=== PATIENT | male | born 1935 | race Caucasian/White ===

== ENCOUNTER 2018-03-25 08:47 | Observation (INO) | payer OTHER, BC ==
--- NOTE | 2018-03-25 08:56 | CPEKG ---
Heart Rate: 51 RR Interval: 1176 P-R Interval: 192 QRSD Interval: 82 QT Interval: 472 QTC Interval: 435 P [place]: 81 QRS [place]: 12 T Wave [place]: 6 EKG Severity - OTHERWISE NORMAL ECG - EKG Impression: SINUS RHYTHM EKG Impression: LOW VOLTAGE IN FRONTAL LEADS Electronically Signed By: Shani Rey 25-Mar-2018 13:25:49
--- NOTE | 2018-03-25 09:04 | EDPHY ---
HPI/HX/ROS/PE/MDM Narrative: CHIEF COMPLAINT: Syncope, bradycardia. HISTORY OF PRESENT ILLNESS: This patient is an 82 year old male with history of Alzheimer's dementia arriving via EMS for evaluation of bradycardia following a syncopal event this morning. He does not remember the incident well, but thinks he may have been at breakfast. He does not recall any chest pain prior to passing out. He denies any pain in his head or neck. He felt well upon waking this morning. He had a syncopal event several years ago. He denies any new medications recently. Per nurse sumary of EMS report, the patient was at breakfast and became diaphoretic, then had a syncopal event. On EMS arrival, the patient's blood pressure was "low" and his pulse was "slow". He was reportedly bradycardic around 40bpm. EMS administered 600mL IV NS and IV Atropine in transport with improvement in patient's BP and HR. Currently, the patient has no complaints. He denies fever, chills, chest pain, shortness of breath, palpitations, vomiting , diarrhea, urinary complaints, headache. REVIEW OF SYSTEMS: Unobtainable secondary to patient's underlying memory issues. PAST MEDICAL HISTORY: Patient denies. Per records, history of Alzheimer's dementia. SOCIAL HISTORY: Lives at [facility]. Retired. Next of kin is his sister, who lives land surveying party chief in [place] and land surveying party chief in [place]. VITAL SIGNS: Reviewed by me GENERAL: Pleasant male, alert, no obvious distress. Unable to the provide meaningful information for the history or physical exam. HEENT: Atraumatic. Eyes: No icterus, no injection. Mouth: moist mucous membranes. No erythema or lesions. Neck: supple with no adenopathy. LUNGS: Clear to auscultation bilaterally, no wheezes, rhonchi or rales. CARDIAC: Regular rate and rhythm, no rubs, murmurs or gallops. ABDOMEN: Soft, nontender, nondistended, bowel sounds normal. BACK: No CVA tenderness. EXTREMITIES: No trauma. No edema. Range of motion is normal throughout. NEURO: Alert, grossly nonfocal. Patient states he is not sure where he lives and is not sure what year or season it is. It is unclear if this is baseline for him due to his history of Alzheimer's dementia. SKIN: Warm and dry, no rash. PSYCHIATRIC: Normal mentation, no agitation. Portions of this note were transcribed by a medical liaison. I personally performed a history, physical exam, medical decision making, and confirmed accuracy of information the transcribed note. ED Course: 82 y/o male presents following a syncopal event and reported hypotension and bradycardia. BP on arrival 130/75. HR 49. HPI limited due to patient's underlying memory deficits. Plan for EKG, chest x-ray, labs including CBC, chemistries, POC troponin. 08:54 12-LEAD EKG: Please see the full report in [facility]. My interpretation: Sinus rhythm, rate 51. Reviewed chest x-ray. Evidence of possible COPD. See radiologist report below. Plan to admit for bradycardia, syncope. 10:45 Consulted with hospitalist service. Dr. Webber accepts admission. MDM: Differential diagnoses for the patient's symptom complex was considered including but not limited to cardiac ischemia, arrhythmias, vasovagal syncope, dehydration, acute blood loss, electrolyte abnormalities, severe anemia. - Data Points Imaging Results: Impression: 1. Hyperexpanded lungs with mild interstitial prominence, possibly related to COPD or emphysema. 2. Prominence of main pulmonary arteries, which can be seen with pulmonary hypertension. 3. Additional findings as above. Dictated By: Danilo Millan MD Imaging: I viewed and interpreted images myself Laboratory Results: Laboratory Results 03/25/18 08:45 03/25/18 08:45 Medications Given: Discontinued Medications Enoxaparin Sodium (Lovenox) 30 mg SC DAILY [facility] Stop: 09/22/18 08:59 Last Admin: 03/26/18 09:43 Dose: Not Given Sodium Chloride (Ns) 500 mls @ 0 mls/hr IV ONCE ONE PRN Reason: As Directed Stop: 03/25/18 17:31 Last Admin: 03/25/18 17:18 Dose: 500 mls Multivitamins (Tab-A-Andreas) 1 each PO DAILY TIMMY Stop: 09/22/18 08:59 Last Admin: 03/26/18 09:43 Dose: 1 each Point of Care Test Results: Chemistry 03/25/18 09:55 POC Troponin I 0.00 ng/mL ng/mL (0.00-0.08) General Time Seen by Provider: 03/25/18 08:50 Initial Vital Signs: Initial Vital Signs Temperature (C) 36.4 C 03/25/18 08:47 Heart Rate 49 L 03/25/18 08:47 Respiratory Rate 18 03/25/18 08:47 Blood Pressure 130/75 H 03/25/18 08:47 O2 Sat (%) 96 03/25/18 08:47 O2 Delivery Mode Room Air Allergies/Adverse Reactions: gluten Allergy (Verified 03/25/18 09:24) paprika Allergy (Verified 03/25/18 09:24) Home Medications: Medication Instructions Recorded Herbals/Supplements -Info Only 1 each PO DAILY 03/25/18 Multivitamins [Multivitamin (*)] 1 each PO DAILY 03/25/18 Departure - Departure Disposition: [facility] Inpatient Acute Clinical Impression: Bradycardia Syncope Qualifiers: Syncope type: unspecified Qualified Code(s): R55 - Syncope and collapse Condition: Fair Report Scribed for: Shani Rey Report Scribed by: Aileen Lacey Date of Report: 03/25/18 Time of Report: 09:41
[2018-03-25 09:14] LABS: PLATELET COUNT 188 10^3/uL (150-400)
[2018-03-25] MEDS ORDERED: ONDANSETRON DISINTEGRATING 4 MG TAB PO PRN (13:37)
[2018-03-25] MEDS ORDERED: ONDANSETRON 4 MG/2 ML VIAL IVP PRN (13:37)
[2018-03-25] MEDS ORDERED: ACETAMINOPHEN 325 MG TAB PO PRN (13:37)
[2018-03-25] MEDS ORDERED: NS 1,000 ML IV SCH (13:45)
--- NOTE | 2018-03-25 15:31 | ECHO ---
[email or web address] [address] Main: [phone] Fax: Transthoracic Echocardiogram Name: FILEMON MEEKS MR#: [id number] Study Date: 03/25/2018 Study Time: 02:30 PM Date of : 1935 Age: 82 year(s) Height: 182.9 cm (72 in.) Weight: 57.15 kg (126 lb.) BSA: 1.75 m2 Gender: Male Examination: Echo Indication: Cardiac: syncope Image Quality: Contrast: Requested by: Jory Webber BP: 124 mmHg/78 mmHg Heart Rate: Rhythm: Indication: Cardiac: syncope Procedure Staff Tank Terminal Gauger: Juan Combs RDCS Reading Physician: Tra Alejo MD Requesting Provider: Conclusions: Normal study Right ventricular systolic pressure of 53 mm of mercury. With history of syncope consider evaluation for pulmonary embolic disease if this finding is unexpected. Measurements: Chambers Valvular Assessment AV/MV Valvular Assessment TV/PV Normal Normal Normal Name Value Range Name Value Range Name Value Range Ao Anette (MM): 2.5 cm (2.2 cm-3.7 AV Vmax: 1.10 m/s (1 m/s-1.7 TR Vmax: 3.45 mm/s ( - ) cm) m/s) TR PGmax: 48 mmHg ( - ) IVSd (2D): 0.7 cm (0.6 cm-1.1 AV maxP mmHg ( - ) syst. PAP: 53 mmHg ( - ) cm) LVOT Vmax: 0.92 m/s (0.7 m/s-1.1 PV Vmax: 0.70 m/s (0.6 m/s-0.9 LVDd (2D): 4.0 cm (4.2 cm-5.9 m/s) m/s) cm) MV E Vmax: 0.86 m/s ( - ) PV PGmax: 2 mmHg ( - ) LVDs (2D): 2.3 cm (2.1 cm-4 MV A Vmax: 0.80 m/s ( - ) cm) MV E/A: 1.08 ( - ) LVPWd (2D): 0.8 cm (0.6 cm-1 cm) LVEF (2D): 74 (>=54 %) Continued Measurements: Chambers Valvular Assessment AV/MV Valvular Assessment TV/PV Name Value Name Value Name Value LADs Lon.0 cm MV E' Septal: 0.07 m/s CVP (est.): 5 mmHg LA Area: 16.8 cm2 MV E/E' Septal: 12.80 Findings: Left Ventricle: Patient: FILEMON EMEKS Study Date: 03/25/2018 Page 1 of 2 02:30 PM Normal size left ventricle. No LV hypertrophy. Normal global systolic LV function. EF is 74 %. No regional wall motion abnormality. Diastolic dysfunction is present. . Right Ventricle: Normal size right ventricle. Left Atrium: The left atrium is normal in size. Right Atrium: The right atrium is normal in size. Mitral Valve: The mitral valve is normal in appearance and function. Aortic Valve: The aortic valve is normal in appearance and function. Tricuspid Valve: Mild tricuspid regurgitation is present. The pulmonary artery pressure is mildly increased. Pulmonic Valve: The pulmonic valve is normal in appearance and function. Aorta: The aorta is normal. Pericardium: No pericardial effusion. (No Signature Object) Patient: FILEMON MEEKS Study Date: 03/25/2018 Page 2 of 2 02:30 PM [id number]
--- NOTE | 2018-03-25 15:58 | PDGENHP ---
History and Physical - Chief Complaint syncope - History of Present Illness 82 yo M with PMH of Alzheimer's type dementia admitted from SNF with concerns of syncope. Of note, patient has no recollection of the event or any idea why he is in the hospital and therefore his entire history is per chart review. Apparently patient had been in his usual state of health yesterday and this morning, but while at breakfast in his facility he was noted to become diaphoretic and shortly thereafter had a LOC event. EMS was called and on arrival noted that patient had a HR in the 40s, atropine was administered with improvement in both his HR and BP and resolution of his sxs. At the time of my evaluation, patient is eating and states other than being hungry he has no complaints. He is wondering where the flatirons went as he is unable to see them from his window. He denies chest pain, sob, palpitations or weakness/ lightheadedness currently. History Information - Allergies/Home Medication List Allergies/Adverse Reactions: gluten Allergy (Verified 03/25/18 09:24) paprika Allergy (Verified 03/25/18 09:24) Home Medications: Herbals/Supplements -Info Only 1 each PO DAILY 03/25/18 [Last Taken Unknown] Multivitamins [Multivitamin (*)] 1 each PO DAILY 03/25/18 [Last Taken Unknown] I have personally reviewed and updated: family history, medical history, social history, surgical history - Past Medical History dementia - Surgical History Reports: no pertinent surgical hx (per chart review) - Family History Additional family history: parents - Social History Smoking Status: Never smoked Alcohol Use: None Drug Use: None Additional social history: lives at [facility] Review of Systems Review of Systems: ROS: 10pt was reviewed & negative except for what was stated in HPI & below Physical Exam Physical Exam: Temp Pulse Resp BP Pulse Ox 36.8 C 55 L 18 126/69 H 96 03/25/18 15:32 03/25/18 15:32 03/25/18 15:32 03/25/18 15:32 03/25/18 15:32 Constitutional: no apparent distress, appears nourished Eyes: PERRL Ears, Nose, Mouth, Throat: moist mucous membranes Cardiovascular: regular rate and rhythym, no murmur, rub, or gallop, No edema Respiratory: no respiratory distress, no rales or rhonchi Gastrointestinal: normoactive bowel sounds, soft, non-tender abdomen Skin: warm, normal color Musculoskeletal: full muscle strength Neurologic: CN II-XII Intact, No AAOx3, No weakness, No numbness Psychiatric: interacting appropriately, poor memory Lab Data & Imaging Review 03/25/18 08:45 03/25/18 08:45 WBC 6.44 10^3/uL (3.80-9.50) 03/25/18 08:45 RBC 4.64 10^6/uL (4.40-6.38) 03/25/18 08:45 Hgb 14.6 g/dL (13.7-17.5) 03/25/18 08:45 Hct 44.4 % (40.0-51.0) 03/25/18 08:45 MCV 95.7 fL (81.5-99.8) 03/25/18 08:45 MCH 31.5 pg (27.9-34.1) 03/25/18 08:45 MCHC 32.9 g/dL (32.4-36.7) 03/25/18 08:45 RDW 16.1 % (11.5-15.2) H 03/25/18 08:45 Plt Count 188 10^3/uL (150-400) 03/25/18 08:45 MPV 11.4 fL (8.7-11.7) 03/25/18 08:45 Neut % (Auto) 43.9 % (39.3-74.2) 03/25/18 08:45 Lymph % (Auto) 38.7 % (15.0-45.0) 03/25/18 08:45 [place] % (Auto) 9.6 % (4.5-13.0) 03/25/18 08:45 Eos % (Auto) 6.4 % (0.6-7.6) 03/25/18 08:45 Baso % (Auto) 1.1 % (0.3-1.7) 03/25/18 08:45 Nucleat RBC Rel Count 0.0 % (0.0-0.2) 03/25/18 08:45 Absolute Neuts (auto) 2.83 10^3/uL (1.70-6.50) 03/25/18 08:45 Absolute Lymphs (auto) 2.49 10^3/uL (1.00-3.00) 03/25/18 08:45 Absolute Monos (auto) 0.62 10^3/uL (0.30-0.80) 03/25/18 08:45 Absolute Eos (auto) 0.41 10^3/uL (0.03-0.40) H 03/25/18 08:45 Absolute Basos (auto) 0.07 10^3/uL (0.02-0.10) 03/25/18 08:45 Absolute Nucleated RBC 0.00 10^3/uL (0-0.01) 03/25/18 08:45 Immature Gran % 0.3 % (0.0-1.1) 03/25/18 08:45 Immature Gran # 0.02 10^3/uL (0.00-0.10) 03/25/18 08:45 Sodium 139 mEq/L (135-145) 03/25/18 08:45 Potassium 4.3 mEq/L (3.3-5.0) 03/25/18 08:45 Chloride 103 mEq/L (97-110) 03/25/18 08:45 Carbon Dioxide 28 mEq/l (22-31) 03/25/18 08:45 Anion Gap 8 mEq/L (8-16) 03/25/18 08:45 BUN 20 mg/dL (7-23) 03/25/18 08:45 Creatinine 1.2 mg/dL (0.7-1.3) 03/25/18 08:45 Estimated GFR 58 03/25/18 08:45 Glucose 100 mg/dL (70-100) 03/25/18 08:45 Calcium 9.5 mg/dL (8.5-10.4) 03/25/18 08:45 POC Troponin I 0.00 ng/mL (0.00-0.08) 03/25/18 09:55 Troponin I < 0.012 ng/mL (0.000-0.034) 03/25/18 14:30 Visualized and Interpreted Chest x-ray results: Yes Chest X-Ray results: no infiltrate, other (hyperexpansion c/w copd) Visualized and Interpreted EKG results: Yes EKG Interpretation: Positive for: normal sinsus rhythm Assessment & Plan Assessment: Bradycardia (Acute) Syncope (Acute) 82 yo M with dementia admitted s/p syncopal event at home # syncope: in the setting of associated bradycardia as next, currently patient reports feeling back to baseline. Will monitor on telemetry, will obtain echocardiogram and serial troponin # bradycardia: reportedly following patients syncopal event, difficult given his inability to recall event but reportedly occurring during breakfast and with associated diaphoresis--sounds most c/w vagal episode with associated bradycardia and hypotension. Will monitor overnight as above, if symptomatic bradycardia recurs will ask for cardiology consultation # dementia: fairly advanced, patient is oriented to himself, will ask PT/ot/cm to be involved # observation status, suspect he will dc in am # FC--Most form available stating FC Patient new to my care. Old records reviewed and summarized as above. Care plan reviewed with ER doctor as above.
[2018-03-25] MEDS ORDERED: NS 500 ML IV ONE (17:30)
[2018-03-26 08:10] VITALS: BP 124/74
[2018-03-26] MEDS ORDERED: ENOXAPARIN 30 MG/0.3 ML SYR SC SCH (09:00)
[2018-03-26] MEDS ORDERED: MULTIVITAMINS 1 EACH TAB PO SCH (09:00)
--- NOTE | 2018-03-26 09:39 | PDIAF ---
- Diagnosis Code Status: Full Code - Medication Management Discharge Medications: Medications to Continue on Transfer Herbals/Supplements -Info Only 1 each PO DAILY 03/25/18 [Last Taken Unknown] Multivitamins [Multivitamin (*)] 1 each PO DAILY 03/25/18 [Last Taken Unknown] Discharge Medications: Refer to the Discharge Home Medication list for PRN reason. - Follow Up Care Current Providers and Referrals: Patient,NotPresent [Unknown] - As per Instructions Karthikeyan Treviño [Primary Care Provider] -
--- NOTE | 2018-03-26 09:40 | PDIAF ---
- Diagnosis Code Status: Full Code - Medication Management Discharge Medications: Medications to Continue on Transfer Herbals/Supplements -Info Only 1 each PO DAILY 03/25/18 [Last Taken Unknown] Multivitamins [Multivitamin (*)] 1 each PO DAILY 03/25/18 [Last Taken Unknown] Discharge Medications: Refer to the Discharge Home Medication list for PRN reason. - Orders Services needed: Home Care, Registered Nurse, Certified Certified Indoor Environmentalist, Physical Therapy, Occupational Therapy Home Care Face to Face: I certify that this patient was under my care and that I had the required [id number] encounter meeting the encounter requirements on the discharge day. My findings support the fact that the patient is homebound as defined in Home Care Face to Face Continued: CMS Chapter 7 Medicare Benefits Manual 30.1.1 , The condition of the patient is such that there exists a normal inability to leave home and consequently, leaving home would require a considerable and taxing effort. - Follow Up Care Current Providers and Referrals: Patient,NotPresent [Unknown] - As per Instructions Karthikeyan Treviño [Primary Care Provider] -
--- NOTE | 2018-03-26 09:40 | PDDCSUM ---
Discharge Summary Discharge Summary: Dates of service 03/25-03/26/18 Consultations: none Procedures: echocardiogram Hospital course by problem: 82 yo M with dementia admitted s/p syncopal event at home # syncope: in the setting of associated bradycardia as next, currently patient reports feeling back to baseline. Suspect a vasovagal event with associated increased bradycardia. Echo, trops, ecg in house reassuring # bradycardia: as above, with associated diaphoresis and in the setting of eating suspected to be vasovagal. Plan for outpatient holter monitoring. # dementia: fairly advanced, patient is oriented to himself, will return to prior living situation # FC--Most form available stating FC DC back to [facility] f/u with cardiology for holter monitor > 35 min spent in dc more than half in coordination of care
--- NOTE | 2018-03-26 10:32 | ASMTLACE ---
LACE Length of stay for Answers: Less than 1 day current admission Acuity / Level of Answers: No Care: Did the patient have an inpatient admission? Comorbidities - select Answers: Dementia all that apply # of Emergency department Answers: 1-2 visits in the last 6 months Score: 4 Date Signed: 03/26/2018 10:31 AM Electronically Signed By:Maye Beaver RN
--- NOTE | 2018-03-26 10:57 | ASMTDCNOTE ---
Case Management Discharge Discharge Order Complete? Answers: Yes Patient to Obtain Answers: Other Notes: [facility] Memory Medications Care Transportation Arranged Answers: Family/Friends Faxed Final Orders Answers: Yes Agency/Facility Transfer Answers: Yes Report Printed & Faxed to Receiving Agency Discharge Comments Notes: 03/26/2018 Case Management Note Pt admitted for observation after syncopal episode in the dining morrell at [facility] yesterday. Discussed case with Julieta Moise clinical post acute care nurse practitioner of [facility]. Call to Corbin at [facility] to confirm that pt lives in the memory care assisted living unit of . Parris Olvera is pt RN at [facility]. Family friend Basil to take pt to [facility] upon discharge. RN to call report. Date Signed: 03/26/2018 10:56 AM Electronically Signed By:Maye Beaver RN
--- NOTE | 2018-03-26 10:57 | ASDISCHSUM ---
Discharge Information Plan Status:Home with No Needs Medically Cleared to Leave:03/26/2018 Discharge Date:03/26/2018 CM D/C Disposition:Home, Routine, Self-Care ADT D/C Disposition:[facility]pc Facility Projected Discharge Date:03/26/2018 11:00 AM Transportation at D/C:Friend Discharge Delay Reason: Follow-Up Date:03/26/2018 11:00 AM Discharge Slot: Final Diagnosis: Placement Information Referral Type:*Mcfp/SNF Referral ID:[id number] Provider Name:Thelma Vega [facility] Address 1:[address] Phone Number: Address 2: Fax Number: [facility] Selection Factors: State:[place] Patient Contact Information Contact Name:NADIA Relationship:Sister Address:[address] Work Phone: City:[place] Alternate Phone: State/Zip Code:[place] [address] Email: Financial Information Financial Class:Medicare Primary Plan Desc:MEDICARE OUTPATIENT Primary Plan Number:[id number] Secondary Plan Desc:Archive [facility] Secondary Plan Number:[id number] Assessment Information LACE LACE Length of stay for Answers: Less than 1 day current admission Acuity / Level of Answers: No Care: Did the patient have an inpatient admission? Comorbidities - select Answers: Dementia all that apply # of Emergency department Answers: 1-2 visits in the last 6 months Score: 4 Date Signed: 03/26/2018 10:31 AM Electronically Signed By:Maey Beaver RN Case Management Discharge Plan Note Case Management Discharge Discharge Order Complete? Answers: Yes Patient to Obtain Answers: Other Notes: [facility] Memory Medications Care Transportation Arranged Answers: Family/Friends Faxed Final Orders Answers: Yes Agency/Facility Transfer Answers: Yes Report Printed & Faxed to Receiving Agency Discharge Comments Notes: 03/26/2018 Case Management Note Pt admitted for observation after syncopal episode in the dining morrell at [facility] yesterday. Discussed case with Julieta Moise clinical primary care provider of [facility]. Call to Corbin at [facility] to confirm that pt lives in the memory care assisted living unit of . Parris Olvera is pt RN at [facility]. Family friend Basil to take pt to [facility] upon discharge. RN to call report. Date Signed: 03/26/2018 10:56 AM Electronically Signed By:Maye Beaver RN Intervention Information
== END 2018-03-26 11:39 ==
LOC: EDUNIT# → F2W 12:14
PROVIDERS: ADMIT Internal Medicine; ATTEND Internal Medicine
DX: R55 Syncope and collapse (principal); R00.1 Bradycardia, unspecified; G30.9 Alzheimer's disease, unspecified; F02.80 Dementia in other diseases classified elsewhere, unspecified severity, without behavioral disturbance, psychotic disturbance, mood disturbance, and anxiety
CPT/HCPCS: 71046; 93005; 93306; 97166; G0378; G8987; G8988; G8989; 84484-PO; J1650